=== PATIENT | female | born 2000 | race Caucasian/White ===

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

== ENCOUNTER 2021-04-04 12:15 | Emergency (ER) | payer OTHER ==
[2021-04-04 13:26] LABS: HEMOGLOBIN 12.2 gm/dl (12.3-15.3); RED BLOOD COUNT 4.67 M/UL (4.00-5.10); WHITE BLOOD COUNT 10.4 K/UL (4.5-11.0)
[2021-04-04 13:41] LABS: BUN/CREATININE RATIO 12 (0-10)
[2021-04-04] MEDS ORDERED: HYDROCODON-ACE1 EAC4 PO (15:16)
[2021-04-04] MEDS ORDERED: FLOMAX 0.4 MG0.4 MG PO (15:19)
[2021-04-04] MEDS ORDERED: ZOFRAN4 MG PO (15:19)
== END 2021-04-04 15:36 | disposition home or self-care (01) ==
LOC: ER1 12:15
PROVIDERS: Nurse Practitioner
DX: N13.2 Hydronephrosis with renal and ureteral calculous obstruction (principal)
CPT/HCPCS: 80053; 81001; 83690; 84703; 85025; 96374; 96375; 99284; J2270; J2405; J7030; Q9967